=== PATIENT | female | born 1980 | race Caucasian/White ===

== ENCOUNTER 2017-08-16 18:43 | Emergency (ER) | payer OTHER, BC ==
[~2017-08-16] VITALS: Ht 177.8 cm; Wt 102.3 kg
[~2017-08-16 18:43] MED LIST: AMITRIPTYLINE H25 M1 PO; ASPIRIN 81M81 MG/TA2 PO; ATARAX50 MG PO; B-12 500 MCG PO; BENADRYL25 M2 PO; COLACE 100100 MG/CAP PO; FLAGYL500 MG PO; FLOMAX 0.40.4 MG/CAP PO; HCTZ12.5TAB PO; INDERAL 10MG10 MG PO; INDERAL 20MG20 MG PO; LASIX 20MG TABL20 MG PO; LEVAQUIN 5500 MG/TA1 PO; NORCO 325 MG-51 TAB PO; PEPCID 20MG TAB20 MG PO; PERCOCET 325 MG1 TA2 PO; PREDNISONE20 MG PO; PRIL40 PO; SENNA8.6 MG PO; SENOKOT8.6 MG PO; TAGAMET800 MG PO; TOPAMAX 25MG25 M1 PO; TUMS 500500 MG PO; TYLENOL 500MG500 MG PO; UROCIT-K 1010 MEQ PO; UROCIT-K 5540 MG/TAB PO; WELLBUTRIN XL300 M1 PO; ZESTRIL 10MG10 MG PO; ZOFRAN 4MG T4 MG/TAB PO; ZOFRAN ODT4 MG PO
[2017-08-16 18:54] VITALS: BP 100/62; TEMP 98.5
[2017-08-16] MEDS ORDERED: NORCO 325 MG-51 TAB PO (22:13)
[2017-08-16 22:30] VITALS: PULSE 73
== END 2017-08-16 22:30 | disposition home or self-care (01) ==
LOC: COL.ER 18:43
DX: S16.1XXA Strain of muscle, fascia and tendon at neck level, initial encounter (principal); T14.8 Other injury of unspecified body region; G43.909 Migraine, unspecified, not intractable, without status migrainosus; Z79.82 Long term (current) use of aspirin; V47.5XXA Car driver injured in collision with fixed or stationary object in traffic accident, initial encounter; Y92.828 Other wilderness area as the place of occurrence of the external cause
CPT/HCPCS: J1170; J2765; J7030

== ENCOUNTER → 2017-10-24 | Outpatient (CLI) | payer BC | LOC: COL.RAD 07:30 | DX: R10.11 Right upper quadrant pain (principal) ==

== ENCOUNTER → 2017-10-27 | Outpatient (CLI) | payer BC | LOC: COL.RAD 05:53 | DX: R10.11 Right upper quadrant pain (principal) | CPT/HCPCS: A9537 ==

== ENCOUNTER → 2017-11-16 | Outpatient (CLI) | payer BC ==
[2017-11-16 14:11] LABS: BASO # 0.1 (0.0-0.2); BASO % 1.4 % (0.0-2.0); EOS # 0.2 (0.0-0.7); EOS % 4.9 % (0-4.0); GRAN # 1.7 (1.4-6.5); GRAN % 38.5 % (42.2-75.2); HEMATOCRIT 43.8 % (37.0-47.0); HEMOGLOBIN 13.7 g/dl (12.5-16.0); LYMPH # 1.9 (1.2-3.4); LYMPH % 45.2 % (20.0-51.0); MEAN CELL VOLUME 90 fl (80.0-100.0); MEAN CORPUSCULAR HEMOGLOBIN 28 pg (27.0-31.0); MEAN CORPUSCULAR HGB CONC 31 g/dl (33.0-37.0); MEAN PLATELET VOLUME 11.1 fl (7.4-10.4); MONO # 0.4 (0.1-0.6); MONO % 9.8 % (1.7-9.3); PLATELET COUNT 232 K/mm3 (130-400); RED BLOOD COUNT 4.87 M/mm3 (4.10-5.30)
[2017-11-16 14:16] LABS: ALBUMIN 4.5 gm/dL (3.5-5.0); BILIRUBIN,TOTAL 0.8 mg/dL (0.0-1.0); CALCIUM 9.5 mg/dL (8.4-10.2); CHOLESTEROL RISK RATIO 3.6; CREATININE, serum 1.3 mg/dL (0.52-1.25)
== END ==
LOC: COL.LAB 11:28
PROVIDERS: Family Medicine
DX: K76.0 Fatty (change of) liver, not elsewhere classified (principal); N18.9 Chronic kidney disease, unspecified; R59.0 Localized enlarged lymph nodes

== ENCOUNTER → 2017-12-24 | Emergency (ER) | payer BC ==
[~2017-12-24] VITALS: Ht 177.8 cm; Wt 111.4 kg
[~2017-12-24] MED LIST changes: +MAG-OX 400400 MG/TAB PO; +MELATONIN5 M1; +MULTI VITAMINS1 TAB PO; +PERCOCET 325 MG1 TA3 PO; +PHARMASSURE ZIN50 MG PO; +TOPROL XL 25MG25 MG PO; +ZANAFLEX 4MG TAB4 MG PO
[2017-12-24 07:00] LABS: BASO # 0.1 (0.0-0.2); BASO % 0.4 % (0.0-2.0); EOS # 0.2 (0.0-0.7); EOS % 1.3 % (0-4.0); GRAN # 11.9 (1.4-6.5); GRAN % 83.1 % (42.2-75.2); HEMOGLOBIN 13.2 g/dl (12.5-16.0); LYMPH # 1.5 (1.2-3.4); LYMPH % 10.6 % (20.0-51.0); MEAN CELL VOLUME 91 fl (80.0-100.0); MEAN CORPUSCULAR HEMOGLOBIN 29 pg (27.0-31.0); MEAN CORPUSCULAR HGB CONC 31 g/dl (33.0-37.0); MONO # 0.6 (0.1-0.6); MONO % 4.2 % (1.7-9.3); PLATELET COUNT 206 K/mm3 (130-400); RED BLOOD COUNT 4.63 M/mm3 (4.10-5.30); REDCELL DISTRIBUTION WIDTH-CV 13.3 % (11.5-14.5)
[2017-12-24 07:18] LABS: ALANINE AMINOTRANSFERASE 30 U/L (9-52); ALBUMIN 4.2 gm/dL (3.5-5.0); ALKALINE PHOSPHATASE 89 U/L (50-136); ANION GAP 10 mmol/L (7-16); AST,SGOT 25 U/L (15-37); BILIRUBIN,TOTAL 0.6 mg/dL (0.0-1.0); BLOOD UREA NITROGEN 26 mg/dL (7-17); CALCIUM 8.8 mg/dL (8.4-10.2); CARBON DIOXIDE 21 mmol/L (22-30); CHLORIDE 110 mmol/L (98-107); CREATININE, serum 1.13 mg/dL (0.52-1.25); GLUCOSE 104 mg/dL (74-106); LIPASE 206 U/L (23-300); POTASSIUM 3.9 mmol/L (3.4-5.0); SODIUM 140 mmol/L (137-145); TOTAL PROTEIN 7.3 gm/dL (6.4-8.2)
[2017-12-24 07:23] LABS: C-REACTIVE PROTEIN < 0.5 mg/dL (0.0-0.9)
[2017-12-24 08:28] LABS: COLLECTION METHOD CLEAN CATCH
[2017-12-24 08:48] LABS: MUCOUS Present /lpf; PH 6 (5-8); SQUAMOUS EPITHELIAL 0-2 /hpf; URINE APPEARANCE Clear; URINE BACTERIA None Seen /hpf; URINE BILIRUBIN Negative (NEGATIVE); URINE BLOOD Negative (NEGATIVE); URINE COLOR Yellow; URINE GLUCOSE Negative (NEGATIVE); URINE KETONE Negative (NEGATIVE); URINE LEUKOCYTE ESTERASE Negative (NEGATIVE); URINE NITRATE Negative (NEGATIVE); URINE PROTEIN(semi-quant) Negative (NEGATIVE); URINE RBC 0-2 /hpf; URINE UROBILINOGEN Negative (NEGATIVE)
[2017-12-24 17:20] VITALS: BP 130/68; PULSE 78
[2017-12-24 17:30] VITALS: BP 124/65; PULSE 70
[2017-12-24 17:45] VITALS: BP 127/74; PULSE 68
[2017-12-24 18:00] VITALS: BP 120/76; PULSE 68; TEMP 98.1
[2017-12-24 18:30] VITALS: BP 123/72; PULSE 66
== END ==
LOC: COL.ER 06:06
PROVIDERS: Emergency Medicine
DX: N83.202 Unspecified ovarian cyst, left side (principal); N83.201 Unspecified ovarian cyst, right side; I10 Essential (primary) hypertension; Z90.710 Acquired absence of both cervix and uterus; Z90.49 Acquired absence of other specified parts of digestive tract; Z87.442 Personal history of urinary calculi
CPT/HCPCS: J0690; J1100; J1170; J2250; J2405; J2704; J2710; J3010; J7030

== ENCOUNTER 2018-08-22 08:50 | Emergency (ER) | payer BC ==
[~2018-08-22] VITALS: Ht 177.8 cm; Wt 95.5 kg
[2018-08-22 08:53] VITALS: TEMP 98.5
[2018-08-22 10:50] VITALS: BP 130/62; PULSE 82
== END 2018-08-22 10:51 | disposition home or self-care (01) ==
LOC: COL.ER 08:50
DX: G43.909 Migraine, unspecified, not intractable, without status migrainosus (principal); N18.9 Chronic kidney disease, unspecified; Z98.84 Bariatric surgery status; Z90.5 Acquired absence of kidney
CPT/HCPCS: J1170; J2550

== ENCOUNTER → 2018-11-06 | Outpatient (CLI) | payer BC | LOC: MC.RAD 09:07 | DX: Z12.31 Encounter for screening mammogram for malignant neoplasm of breast (principal) ==

== ENCOUNTER 2019-01-04 08:56 | Emergency (ER) | payer BC ==
[~2019-01-04] VITALS: Ht 177.8 cm; Wt 109.1 kg
[2019-01-04 08:58] VITALS: BP 157/85; PULSE 71; TEMP 98
[2019-01-04] MEDS ORDERED: CEPHALEXIN250 M1 PO (09:05)
[2019-01-04] MEDS ORDERED: ESTRACE 1MG1 MG/TAB PO (09:05)
[2019-01-04] MEDS ORDERED: MAGNESIUM200 MG PO (09:06)
[2019-01-04] MEDS ORDERED: ZITHROMAX 250M250 MG PO (09:06)
[2019-01-04] MEDS ORDERED: AMOXICILLIN 8751 TAB PO (09:32)
== END 2019-01-04 10:06 | disposition home or self-care (01) ==
LOC: COL.ER 08:56
DX: J01.90 Acute sinusitis, unspecified (principal); G43.909 Migraine, unspecified, not intractable, without status migrainosus; F32.9 Major depressive disorder, single episode, unspecified; I10 Essential (primary) hypertension; Z90.710 Acquired absence of both cervix and uterus; Z88.5 Allergy status to narcotic agent; Z98.84 Bariatric surgery status; Z87.442 Personal history of urinary calculi
CPT/HCPCS: J1040